=== PATIENT | male | born 1990 | race Caucasian/White ===

== ENCOUNTER → 2021-12-20 | Outpatient (CLI) | payer OTHER ==
[~2021-12-20] MED LIST: NORCO 325 MG-51 TA1 PO; PROAIR HFA0.09 MG/AC IH
[2021-12-20 11:24] LABS: HEMATOCRIT 42.8 % (42.0-52.0); HEMOGLOBIN 14.5 g/dL (13.5-18.0); MEAN PLATELET VOLUME 9.1 fl (7.4-10.4); RED BLOOD COUNT 5.15 M/mm3 (4.20-5.60); RED CELL DISTRIBUTION WIDTH 12.2 % (11.5-14.5)
[2021-12-20 11:37] LABS: ALBUMIN 4.7 g/dL (3.5-5.0)
[2021-12-20 11:38] LABS: CALCIUM 9.6 mg/dL (8.3-10.5)
[2021-12-20 11:40] LABS: TOTAL PROTEIN 7.6 g/dL (6.4-8.3)
[2021-12-20 11:41] LABS: TOTAL BILIRUBIN 0.9 mg/dL (0.2-1.2)
== END ==
LOC: LAB 11:07
PROVIDERS: Family Medicine
DX: J45.909 Unspecified asthma, uncomplicated (principal); F41.8 Other specified anxiety disorders

== ENCOUNTER → 2022-02-12 | Outpatient (CLI) | payer SELFPAY | LOC: LAB 14:48 | DX: U07.1 COVID-19 (principal) ==

== ENCOUNTER → 2024-08-12 | Outpatient (CLI) | payer BC | LOC: RAD 10:29 | DX: R10.11 Right upper quadrant pain (principal) ==